=== PATIENT | male | born 1950 | race Caucasian/White ===

== ENCOUNTER → 2019-12-27 10:06 | Outpatient (CLI) | payer MEDICARE, OTHER, SELFPAY ==
--- NOTE | 2019-12-27 | DI.RAD.S_ITS ---
PROCEDURE: FL BARIUM SWALLOW W AIR COMPARISON: None. INDICATIONS: DYSPHAGIA FINDINGS: There is decreased esophageal peristalsis, and delayed esophageal clearance. There is occasional retrograde propulsion of contrast material within the esophagus. Spontaneous gaseous esophageal reflux is noted to the level of the lower third of the esophagus. No discrete stricture identified, however tapered narrowing of the distal esophagus is noted. Suboptimal air contrast evaluation due to poor esophageal gaseous distention. However, no gross mucosal abnormality identified. There is mildly delayed transit of caliber a barium tablet primarily due to esophageal hypomotility. IMPRESSION: Esophageal dysmotility. Gastroesophageal reflux Mildly tapered narrowing of the distal esophagus, without achalasia appearance however technically cannot exclude early stricture. Suboptimal evaluation due to frequent retrograde propulsion of contrast material. There is passage of barium tablet as above. Dependent on clinical suspicion, upper endoscopy could be performed for further assessment. Dictated by: Valente Watson M.D. on 12/27/2019 at 11:08 Approved by: Valente Watson M.D. on 12/27/2019 at 11:14
== END ==
PROVIDERS: Referring Provider Family Medicine; Visit Provider Family Medicine
DX: R13.10 Dysphagia, unspecified (principal); K22.4 Dyskinesia of esophagus; K21.9 Gastro-esophageal reflux disease without esophagitis
CPT/HCPCS: 74221

== ENCOUNTER → 2020-01-28 08:16 | Outpatient (CLI) | payer MEDICARE, OTHER, SELFPAY ==
[2020-01-29 20:31] LABS: COVID19 Sendout Not Detected (Not Detect)
== END ==
PROVIDERS: Visit Provider Nurse Practitioner
DX: Z11.59 Encounter for screening for other viral diseases (principal)
CPT/HCPCS: 87635

== ENCOUNTER 2020-01-31 09:56 | Day surgery (SDC) | payer MEDICARE, OTHER, SELFPAY ==
[2020-01-31] VITALS (9 sets, daily range): BP systolic 117–144; BP diastolic 82–95; PULSE 72–85; RESP 11–25; TEMP 36.2–36.6; O2SAT 91–97; BMI 28.3
--- NOTE | 2020-01-31 | PATH_ITS ---
[facility] Accession Number: [id number] . 01 Material submitted: . PART A: gastrointestinal site - GASTRIC PART B: esophagus - ESOPHAGEAL MASS . 02 Diagnosis: A. Stomach, Biopsies: Signet-ring cell carcinoma focally present. Background antral mucosa with mild chronic inflammation and intestinal metaplasia. Intestinal metaplasia present in 2 of 3 biopsy fragments. No Helicobacter pylori organisms identified on H/E stain; please see comment. . B. 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 [facility] 02/02/2020 1449 Local . 02 Comment: A. An immunohistochemical stain for Helicobacter pylori is pending, and results will be issued in an addendum. . B. An immunohistochemical stain for HER2 is pending, and results will be issued in an addendum. . As part of routine quality control projectionist, Dr. Delacruz has reviewed parts A and B of this case, and agrees with the diagnoses of adenocarcinoma with signet-ring cell features. The finding of adenocarcinoma with signet-ring cell features was reported to Dr. Dee via his medical claims specialist, Yen, by Dr. Martinez on 02/02/20 at 9:45 a.m. . 02 Electronically signed: . Daniel Martinez MD, PhD, Pathologist NPI- [id number] . 01 Gross description: . Part A: GASTRIC: Received in formalin are 3 fragment(s) of camara, soft tissue measuring 0.4 x 0.2 x 0.1 cm to 0.2 x 0.1 x 0.1 cm submitted entirely in 1 cassette(s) Part B: ESOPHAGEAL MASS: Received in formalin are multiple fragment(s) of camara, soft tissue measuring 0.4 x 0.4 x 0.1 cm in aggregate submitted entirely in 1 cassette(s) /QBJ 02/01/2020 0803 Local . 02 Pathologist provided ICD-10: K29.70, K31.9, C15.9 . 02 CPT . 141948, 653847, [id number] Performed at: 01 [facility] [address] [id number] MD Rudolph Paul MD Phone: [phone] Performed at: [facility] [address] [place] [id number] MD Avelina Delacruz MD Phone: [phone]
[2020-01-31] MEDS: LACTATED RINGERS 1,000 ML 42 ML IV (10:54)
--- NOTE | 2020-01-31 12:06 | PM.OP.ENDO ---
Operative Date/Time/Diagnoses Date of procedure: 01/31/20 Time of procedure: 12:06 Pre-op diagnosis: See indication and findings Procedure & Clinicians Study performed: EGD Same procedure as scheduled: Yes Indications: Dysphagia Surgeon: Damir Dee Procedure Notes Procedure in detail: After informed consent was obtained the patient was placed in left lateral decubitus position. Video upper scope placed into the oropharynx with the patients help swallowed into esophagus. The esophagus stomach and duodenum were carefully examined. On withdrawal retroflexed view of the GE junction was performed. The scope was removed. The patient tolerated procedure well. Blood loss none Complications none Sedation Total sedation time 15 minutes Versed 7 mg fentanyl 100 mg IV titration Findings 1. Normal proximal and midesophagus. 2. At 35 cm a fungating stenotic lesion began that progressed down and through the GE junction. GE junction was probably at 40 cm. Beyond this there was the appearance of neoplastic tissue growing down at least another 4 cm along the greater curve of the stomach. Biopsies were taken separately of the esophageal lesion and what I perceived to be the extension of the lesion down along the gastric wall in a separate bottle. 3. Otherwise normal exam. Will discuss further with patient. Will set him up for CT of the chest abdomen pelvis and refer him to these system and surgeon of his preference.
[2020-01-31] MEDS: fentaNYL 250 MCG/5 ML INJ IV (12:08)
[2020-01-31] MEDS: MIDAZOLAM 5 MG/5 ML VIAL IV ×7 (12:08→12:17)
--- NOTE | 2020-01-31 12:39 | SUR.PHASEI ---
Slow to wake.
--- NOTE | 2020-01-31 13:00 | SUR.PHASEI ---
More awake, tolerated ice and drank juice w/o choking.
--- NOTE | 2020-01-31 13:43 | SUR.PHASEII ---
Dr. Dee at bedside at 1330 discussing procedure findings and next steps with pt and pt spouse at bedside.
== END 2020-01-31 13:54 | disposition home or self-care (01) ==
PROVIDERS: PCP Family Medicine; Referring Provider Internal Medicine Gastroenterology; Visit Provider Internal Medicine Gastroenterology
PROC: 0DJ08ZZ Inspection of Upper Intestinal Tract, Via Natural or Artificial Opening Endoscopic (ICD-10-PCS; CPT 43235; principal; 2020-01-31 13:00)
DX: C15.9 Malignant neoplasm of esophagus, unspecified (principal); K29.70 Gastritis, unspecified, without bleeding; K31.9 Disease of stomach and duodenum, unspecified; I10 Essential (primary) hypertension; E78.5 Hyperlipidemia, unspecified; E53.8 Deficiency of other specified B group vitamins
CPT/HCPCS: 43239; J2250; J3010

== ENCOUNTER → 2020-02-12 13:59 | Outpatient (CLI) | payer MEDICARE, OTHER, SELFPAY ==
[2020-02-13 11:37] LABS: COVID19 Sendout Not Detected (Not Detect)
== END ==
PROVIDERS: PCP Family Medicine; Visit Provider Physician Assistant
DX: Z11.59 Encounter for screening for other viral diseases (principal)
CPT/HCPCS: 87635

== ENCOUNTER → 2020-02-25 08:23 | Outpatient (CLI) | payer MEDICARE, OTHER, SELFPAY ==
[2020-02-27 01:41] LABS: COVID19 Sendout Not Detected (Not Detected)
== END ==
PROVIDERS: PCP Family Medicine; Visit Provider Physician Assistant
DX: Z11.59 Encounter for screening for other viral diseases (principal)
CPT/HCPCS: 87635

== ENCOUNTER → 2020-05-11 10:40 | Outpatient (CLI) | payer MEDICARE, OTHER, SELFPAY ==
[2020-05-11 13:00] LABS: COVID19 -Nasal RAPID Negative (Negative)
== END ==
PROVIDERS: PCP Family Medicine; Visit Provider Physician Assistant
DX: Z11.59 Encounter for screening for other viral diseases (principal)
CPT/HCPCS: 87635

== ENCOUNTER → 2021-01-04 09:31 | Outpatient (CLI) | payer MEDICARE, OTHER, SELFPAY ==
[2021-01-04 12:01] LABS: COVID-19 CEPHEID PCR (VTM/NP) Negative (Negative)
== END ==
PROVIDERS: PCP Family Medicine; Referring Provider Physician Assistant; Visit Provider Physician Assistant
DX: Z20.822 Contact with and (suspected) exposure to COVID-19 (principal)
CPT/HCPCS: C9803; U0003

== ENCOUNTER → 2021-01-11 11:39 | Outpatient (CLI) | payer MEDICARE, OTHER, SELFPAY ==
[2021-01-11 12:58] LABS: COVID19 - ADMIT (NP swab/PCR) Negative (Negative)
== END ==
PROVIDERS: PCP Family Medicine; Visit Provider Physician Assistant
DX: Z01.812 Encounter for preprocedural laboratory examination (principal); Z20.822 Contact with and (suspected) exposure to COVID-19
CPT/HCPCS: C9803; U0003

== ENCOUNTER → 2021-06-06 10:20 | Outpatient (CLI) | payer MEDICARE, OTHER, SELFPAY ==
[2021-06-06 12:02] LABS: COVID-19 CEPHEID PCR (VTM/NP) Negative (Negative)
== END ==
PROVIDERS: PCP Family Medicine; Visit Provider Physician Assistant
DX: Z20.822 Contact with and (suspected) exposure to COVID-19 (principal)
CPT/HCPCS: C9803; U0003